=== PATIENT | female | born 1950 | race American Indian/Alaskan Native ===

== ENCOUNTER 2017-04-26 15:09 | Emergency (ER) | payer OTHER, MEDICARE, MEDICAID ==
[2017-04-26 16:50] VITALS: BP 135/63
== END 2017-04-26 17:42 | disposition left against medical advice (07) ==
LOC: DL.ED 15:09
DX: Z53.21 Procedure and treatment not carried out due to patient leaving prior to being seen by health care provider (principal)

== ENCOUNTER 2017-05-10 01:58 | Emergency (ER) | payer MEDICARE, OTHER ==
[2017-05-10] MEDS ORDERED: Naloxone 2 MG/2 ML Syringe IVPUSH ONE (02:03)
[2017-05-10] MEDS ORDERED: 50% Dextrose in Water 50 ML Syringe IVPUSH ONE ×3 (02:05→03:58)
[2017-05-10] MEDS ORDERED: 50% Dextrose in Water 50 ML Syringe ONE (02:06)
[2017-05-10] MEDS ORDERED: Sodium Chloride 0.9% 1,000 ML IV SCH (02:15)
[2017-05-10 02:37] LABS: CHLORIDE,CL 104 mmol/L (101-111); SODIUM,NA 136 mmol/L (135-145)
--- NOTE | 2017-05-10 03:01 | EDM.PDOC ---
ED HPI GENERAL MEDICAL PROBLEM - General Chief Complaint: Neuro Symptoms/Deficits Stated Complaint: ER VISIT Time Seen by Provider: 05/10/17 02:10 Source of Information: Reports: Family History Limitations: Reports: Altered Mental Status - History of Present Illness INITIAL COMMENTS - FREE TEXT/NARRATIVE: ED via family car. Family reports "something wrong" Patient total lift removal from front passenger seat. Eye open, darting. Unresponsive. Skin clammy. Transfer to cot. No obvious signs of injury. Spontaneous snoring respirations, Sats 98%. HR90"s regular. Pupils equal 3mm. Lung ho clear. IV initiated, labs drawn , bedside glucose less than 20. D50 administered. Increased arousal, Patient able to relay hx initially memory of 9pm and leaving friends house at 9pm, then able to relate detailed hx of feeling shakey while in [facility] notes then going to [place] to meet with daughter and daughter noted not acting nrmal and tried giving her pop with glucose tablets but tasted bitter not sweet. clarified, they were at [place] prior to [facility]. Stated they left [facility] and wer going home but turned around and came to hospital. Noting thought they left [facility] after 1am. Originally reported blood sugar low this devyn 120 so did not take insulin. Then later reported to RN that blood sugar 218 and did take insulin before bed. - Related Data Allergies Allergy/AdvReac Type Severity Reaction Status Date / Time butorphanol tartrate Allergy Rash Verified 05/10/17 02:31 [From Stadol] ibuprofen Allergy Itching Verified 05/10/17 02:31 ketorolac Allergy Itching Verified 05/10/17 02:31 Home Meds: Home Meds Insulin Aspart [NovoLOG] 24 units SUBCUT TIDAC 05/03/14 [History] Insulin Glarg,Human.Rec.Analog [Lantus] 55 units SUBCUT BEDTIME 05/03/14 [ History] Lisinopril 20 mg PO DAILY 05/03/14 [History] buPROPion [Wellbutrin] 150 mg PO TID 05/10/14 [History] hydrOXYzine HCl [Atarax] 50 mg PO TID PRN 06/24/16 [History] Insulin Glarg,Human.Rec.Analog [Lantus] 30 units SQ QAM 10/31/16 [History] Pregabalin [Lyrica] 200 mg PO BID 10/31/16 [History] QUEtiapine [SEROquel] 50 mg PO 0800,1400 10/31/16 [History] QUEtiapine [SEROquel] 100 mg PO BEDTIME 10/31/16 [History] Past Medical History HEENT History: Reports: Impaired Vision Other HEENT History: left eye cataract Cardiovascular History: Reports: Hypertension Respiratory History: Reports: Pneumonia, Recurrent Gastrointestinal History: Reports: GERD Genitourinary History: Reports: Urinary Incontinence 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: Musculoskeletal History: Reports: Fracture Neurological History: Reports: TIA Psychiatric History: Reports: Anxiety, Panic Attack Endocrine/Metabolic History: Reports: Diabetes, Type II Hematologic History: Reports: Blood Transfusion(s) Oncologic (Cancer) History: Reports: Ovarian Dermatologic History: Reports: None - Infectious Disease History Infectious Disease History: Reports: Shingles - Past Surgical History HEENT Surgical History: Reports: Tonsillectomy GI Surgical History: Reports: Appendectomy, Cholecystectomy, EGD Neurological Surgical History: Reports: C-Spine, Spinal Fusion Musculoskeletal Surgical History: Reports: Carpal Tunnel, Shoulder Surgery, Other (See Below) Social & Family History - Family History Family Medical History: Noncontributory - Tobacco Use Smoking Status *Q: Current Status Unknown Years of Tobacco use: 4 Packs/Tins Daily: 0.3 Used Tobacco, but Quit: Yes Month Tobacco Last Used: 1989 Second Hand Smoke Exposure: Yes - Caffeine Use Caffeine Use: Reports: Coffee, Soda, Tea - Alcohol Use Days Per Week of Alcohol Use: 0 - Recreational Drug Use Recreational Drug Use: Yes Drug Use in Last 12 Months: No Recreational Drug Type: Reports: Dilaudid, Fentanyl, Oxycodone, Other (see below ) - Living Situation & Occupation Living situation: Reports: with Family ED ROS GENERAL - Review of Systems Review Of Systems: Unable To Obtain ED EXAM, NEURO - Physical Exam Exam: See Below Exam Limited By: No Limitations General Appearance: Lethargic, Moderate Distress Eye Exam: Bilateral Eye: Abnormal EOM (nystagmus), PERRL Ears: Normal External Exam, Normal TMs Nose: Normal Inspection Throat/Mouth: Normal Inspection, Normal Lips, Normal Teeth Head Exam: Atraumatic, Normocephalic Neck: Normal Inspection, Full Range of Motion Respiratory/Chest: No Respiratory Distress, Lungs Clear, Normal Breath Sounds Cardiovascular: Normal Peripheral Pulses, Regular Rate, Rhythm GI/Abdominal: Normal Bowel Sounds, Soft Neurological: Withdraws to Pain, Tremor, Difficulty Walking Skin Exam: Warm, Intact, Normal Color, Diaphoretic Course - Vital Signs Last Recorded V/S: Last Vital Signs Temp 96.7 F 05/10/17 03:07 Pulse 77 05/10/17 03:07 Resp 16 05/10/17 03:07 BP 143/83 H 05/10/17 03:07 Pulse Ox 99 05/10/17 03:07 - Orders/Labs/Meds Orders: Active Orders 24 hr Category Date Time Status EKG 12 Lead [EKG Documentation Completion] [] URGENT Care 05/10/17 02:01 Active Glucose [Blood Glucose Check, Bedside] [] ONETIME Care 05/10/17 02:04 Active Glucose [Blood Glucose Check, Bedside] [] ONETIME Care 05/10/17 02:28 Active Glucose [Blood Glucose Check, Bedside] [] ONETIME Care 05/10/17 03:06 Active Glucose [Blood Glucose Check, Bedside] [] ONETIME Care 05/10/17 03:45 Active CXR [Chest 1V Frontal] [CR] Urgent Exams 05/10/17 02:02 Ordered Head wo Cont [CT] Urgent Exams 05/10/17 02:01 Ordered Sodium Chloride 0.9% [Normal Saline] 1,000 ml Med 05/10/17 02:15 Active IV ASDIRECTED Medication Orders Sodium Chloride (Normal Saline) 1,000 mls @ 200 mls/hr IV ASDIRECTED RAGHAVENDRA Last Admin: 05/10/17 02:11 Dose: 200 mls/hr Labs: Laboratory Tests 05/10/17 05/10/17 05/10/17 Range/Units 01:58 01:58 02:04 WBC 14.7 H (5.0-10.0) 10^3/uL RBC 4.46 (4.2-5.4) 10^6/uL Hgb 12.3 (12.0-16.0) g/dL Hct 38.1 (37.0-47.0) % MCV 85.4 (80-100) fL MCH 27.6 (27.0-34.0) pg MCHC 32.3 L (33.0-35.0) g/dL Plt Count 430 (150-450) 10^3/uL Neut % (Auto) 49.6 (42.2-75.2) % Lymph % (Auto) 37.1 (20.5-50.1) % [place] % (Auto) 8.6 H (2-8) % Eos % (Auto) 4.4 H (1.0-3.0) % Baso % (Auto) 0.3 (0.0-1.0) % Add Manual Diff Yes Neutrophils % (Manual) 47 (42-75) % Lymphocytes % (Manual) 44 (20-50) % Monocytes % (Manual) 4 (2-8) % Eosinophils % (Manual) 5 H (1-3) % Sodium 136 (135-145) mmol/L Potassium 3.5 L (3.6-5.0) mmol/L Chloride 104 (101-111) mmol/L Carbon Dioxide 22.0 (21.0-31.0) mmol/L Anion Gap 13.5 BUN 22 H (7-18) mg/dL Creatinine 1.2 (0.6-1.3) mg/dL Est Cr Clr Drug Dosing TNP Estimated GFR (MDRD) 45 BUN/Creatinine Ratio 18.33 Glucose 27 L* (74-105) mg/dL POC Glucose (70-105) mg/dl Calcium 9.4 (8.4-10.2) mg/dl Total Bilirubin 0.2 (0.2-1.0) mg/dL AST 27 (10-42) IU/L ALT 40 (10-60) IU/L Alkaline Phosphatase 160 H (42-121) IU/L Troponin I < 0.02 (0.00-0.02) ng/ml Total Protein 8.5 H (6.7-8.2) g/dl Albumin 4.2 (3.2-5.5) g/dl Globulin 4.3 Albumin/Globulin Ratio 0.98 Amylase 39 (28-100) U/L Lipase 25 (22-51) U/L Urine Color (YELLOW) Urine Appearance (CLEAR) Urine pH (5.0-9.0) Ur Specific [place] (1.005-1.030) Urine Protein (NEGATIVE) Urine Glucose (UA) (NEGATIVE) Urine Ketones (NEGATIVE) Urine Occult Blood (NEGATIVE) Urine Nitrite (NEGATIVE) Urine Bilirubin (NEGATIVE) Urine Urobilinogen (0.2-1.0) mg/dL Ur Leukocyte Esterase (NEGATIVE) Urine RBC /HPF Urine WBC (0-5/HPF) /HPF Ur Epithelial Cells /HPF Urine Bacteria (0-FEW/HPF) /HPF Hyaline Casts /LPF Urine Opiates Screen Positive H (NEGATIVE) Ur Oxycodone Screen Negative (NEGATIVE) Urine Methadone Screen Negative (NEGATIVE) Ur Barbiturates Screen Negative (NEGATIVE) U Tricyclic Antidepress Negative (NEGATIVE) Ur Phencyclidine Scrn Negative (NEGATIVE) Ur Amphetamine Screen Negative (NEGATIVE) U Methamphetamines Scrn Negative (NEGATIVE) Urine MDMA Screen Negative (NEGATIVE) U Benzodiazepines Scrn Negative (NEGATIVE) Urine Cocaine Screen Negative (NEGATIVE) U Marijuana (THC) Screen Negative (NEGATIVE) Ethyl Alcohol < 5 mg/dL 05/10/17 05/10/17 05/10/17 Range/Units 02:04 02:04 02:34 WBC (5.0-10.0) 10^3/uL RBC (4.2-5.4) 10^6/uL Hgb (12.0-16.0) g/dL Hct (37.0-47.0) % MCV (80-100) fL MCH (27.0-34.0) pg MCHC (33.0-35.0) g/dL Plt Count (150-450) 10^3/uL Neut % (Auto) (42.2-75.2) % Lymph % (Auto) (20.5-50.1) % [place] % (Auto) (2-8) % Eos % (Auto) (1.0-3.0) % Baso % (Auto) (0.0-1.0) % Add Manual Diff Neutrophils % (Manual) (42-75) % Lymphocytes % (Manual) (20-50) % Monocytes % (Manual) (2-8) % Eosinophils % (Manual) (1-3) % Sodium (135-145) mmol/L Potassium (3.6-5.0) mmol/L Chloride (101-111) mmol/L Carbon Dioxide (21.0-31.0) mmol/L Anion Gap BUN (7-18) mg/dL Creatinine (0.6-1.3) mg/dL Est Cr Clr Drug Dosing Estimated GFR (MDRD) BUN/Creatinine Ratio Glucose (74-105) mg/dL POC Glucose < 20 L* 121 H (70-105) mg/dl Calcium (8.4-10.2) mg/dl Total Bilirubin (0.2-1.0) mg/dL AST (10-42) IU/L ALT (10-60) IU/L Alkaline Phosphatase (42-121) IU/L Troponin I (0.00-0.02) ng/ml Total Protein (6.7-8.2) g/dl Albumin (3.2-5.5) g/dl Globulin Albumin/Globulin Ratio Amylase (28-100) U/L Lipase (22-51) U/L Urine Color Yellow (YELLOW) Urine Appearance Clear (CLEAR) Urine pH 5.5 (5.0-9.0) Ur Specific [place] 1.010 (1.005-1.030) Urine Protein Trace H (NEGATIVE) Urine Glucose (UA) Negative (NEGATIVE) Urine Ketones Negative (NEGATIVE) Urine Occult Blood Negative (NEGATIVE) Urine Nitrite Negative (NEGATIVE) Urine Bilirubin Negative (NEGATIVE) Urine Urobilinogen 0.2 (0.2-1.0) mg/dL Ur Leukocyte Esterase Negative (NEGATIVE) Urine RBC 0-5 /HPF Urine WBC 0-5 (0-5/HPF) /HPF Ur Epithelial Cells Occasional /HPF Urine Bacteria Few (0-FEW/HPF) /HPF Hyaline Casts Few H /LPF Urine Opiates Screen (NEGATIVE) Ur Oxycodone Screen (NEGATIVE) Urine Methadone Screen (NEGATIVE) Ur Barbiturates Screen (NEGATIVE) U Tricyclic Antidepress (NEGATIVE) Ur Phencyclidine Scrn (NEGATIVE) Ur Amphetamine Screen (NEGATIVE) U Methamphetamines Scrn (NEGATIVE) Urine MDMA Screen (NEGATIVE) U Benzodiazepines Scrn (NEGATIVE) Urine Cocaine Screen (NEGATIVE) U Marijuana (THC) Screen (NEGATIVE) Ethyl Alcohol mg/dL 05/10/17 05/10/17 Range/Units 03:08 03:52 WBC (5.0-10.0) 10^3/uL RBC (4.2-5.4) 10^6/uL Hgb (12.0-16.0) g/dL Hct (37.0-47.0) % MCV (80-100) fL MCH (27.0-34.0) pg MCHC (33.0-35.0) g/dL Plt Count (150-450) 10^3/uL Neut % (Auto) (42.2-75.2) % Lymph % (Auto) (20.5-50.1) % [place] % (Auto) (2-8) % Eos % (Auto) (1.0-3.0) % Baso % (Auto) (0.0-1.0) % Add Manual Diff Neutrophils % (Manual) (42-75) % Lymphocytes % (Manual) (20-50) % Monocytes % (Manual) (2-8) % Eosinophils % (Manual) (1-3) % Sodium (135-145) mmol/L Potassium (3.6-5.0) mmol/L Chloride (101-111) mmol/L Carbon Dioxide (21.0-31.0) mmol/L Anion Gap BUN (7-18) mg/dL Creatinine (0.6-1.3) mg/dL Est Cr Clr Drug Dosing Estimated GFR (MDRD) BUN/Creatinine Ratio Glucose (74-105) mg/dL POC Glucose 60 L 85 (70-105) mg/dl Calcium (8.4-10.2) mg/dl Total Bilirubin (0.2-1.0) mg/dL AST (10-42) IU/L ALT (10-60) IU/L Alkaline Phosphatase (42-121) IU/L Troponin I (0.00-0.02) ng/ml Total Protein (6.7-8.2) g/dl Albumin (3.2-5.5) g/dl Globulin Albumin/Globulin Ratio Amylase (28-100) U/L Lipase (22-51) U/L Urine Color (YELLOW) Urine Appearance (CLEAR) Urine pH (5.0-9.0) Ur Specific [place] (1.005-1.030) Urine Protein (NEGATIVE) Urine Glucose (UA) (NEGATIVE) Urine Ketones (NEGATIVE) Urine Occult Blood (NEGATIVE) Urine Nitrite (NEGATIVE) Urine Bilirubin (NEGATIVE) Urine Urobilinogen (0.2-1.0) mg/dL Ur Leukocyte Esterase (NEGATIVE) Urine RBC /HPF Urine WBC (0-5/HPF) /HPF Ur Epithelial Cells /HPF Urine Bacteria (0-FEW/HPF) /HPF Hyaline Casts /LPF Urine Opiates Screen (NEGATIVE) Ur Oxycodone Screen (NEGATIVE) Urine Methadone Screen (NEGATIVE) Ur Barbiturates Screen (NEGATIVE) U Tricyclic Antidepress (NEGATIVE) Ur Phencyclidine Scrn (NEGATIVE) Ur Amphetamine Screen (NEGATIVE) U Methamphetamines Scrn (NEGATIVE) Urine MDMA Screen (NEGATIVE) U Benzodiazepines Scrn (NEGATIVE) Urine Cocaine Screen (NEGATIVE) U Marijuana (THC) Screen (NEGATIVE) Ethyl Alcohol mg/dL Meds: Medications Generic Name Dose Route Start Last Admin Trade Name Freq PRN Reason Stop Dose Admin Sodium Chloride 1,000 mls @ 200 mls/hr 05/10/17 02:15 05/10/17 02:11 Normal Saline IV 200 mls/hr ASDIRECTED RAGHAVENDRA Administration Discontinued Medications Generic Name Dose Route Start Last Admin Trade Name Freq PRN Reason Stop Dose Admin Dextrose/Water 50 ml 05/10/17 02:05 05/10/17 02:09 Dextrose 50% In Water IVPUSH 05/10/17 02:06 50 ml ONETIME ONE Administration Dextrose/Water Confirm 05/10/17 02:06 05/10/17 02:09 Dextrose 50% In Water Administered 05/10/17 02:07 Not Given Dose 50 ml .ROUTE .STK-MED ONE Dextrose/Water 25 ml 05/10/17 03:09 05/10/17 03:13 Dextrose 50% In Water IVPUSH 05/10/17 03:10 25 ml ONETIME ONE Administration Dextrose/Water 25 ml 05/10/17 03:58 05/10/17 04:00 Dextrose 50% In Water IVPUSH 05/10/17 03:59 25 ml ONETIME ONE Administration Lidocaine 700 mg 05/10/17 03:19 05/10/17 03:30 Lidoderm 5% TOP 05/10/17 03:20 700 mg ONETIME ONE Administration Naloxone HCl 0.4 mg 05/10/17 02:03 05/10/17 02:40 Narcan IVPUSH 05/10/17 02:04 Not Given ONETIME ONE - Radiology Interpretation Free Text/Narrative:: Head Ct negative. CXR negative. - Re-Assessments/Exams Free Text/Narrative Re-Assessment/Exam: 05/10/17 03:04 Remains alert following Glucose. Talking with spouse. Follow up glucose 121. Eating toast. Denies complaints. Blood sugars improved but not maintained, Continued to decline even after IV and oral intake. Dr. Marshall agree to accept for observation . Patient refused. AMA form signed. Departure - Departure Time of Disposition: 05:55 Disposition: Against Medical Advice 07 Condition: Undetermined Clinical Impression: History of prescription drug abuse, Hypoglycemia Diabetes mellitus, insulin dependent (IDDM), uncontrolled Qualifiers: Diabetes mellitus complication status: with hypoglycemia Diabetes mellitus complication detail: without coma Qualified Code(s): E10.649 - Type 1 diabetes mellitus with hypoglycemia without coma Altered mental status Qualifiers: Altered mental status type: transient alteration of awareness Qualified Code(s) : R40.4 - Transient alteration of awareness - Discharge Information - My Orders Last 24 Hours: My Active Orders 05/10/17 02:01 EKG 12 Lead [EKG Documentation Completion] [RC] URGENT Head wo Cont [CT] Urgent 05/10/17 02:02 CXR [Chest 1V Frontal] [CR] Urgent 05/10/17 02:04 Glucose [Blood Glucose Check, Bedside] [RC] ONETIME 05/10/17 02:15 Sodium Chloride 0.9% [Normal Saline] 1,000 ml IV ASDIRECTED 05/10/17 02:28 Glucose [Blood Glucose Check, Bedside] [RC] ONETIME 05/10/17 03:06 Glucose [Blood Glucose Check, Bedside] [RC] ONETIME 05/10/17 03:45 Glucose [Blood Glucose Check, Bedside] [RC] ONETIME - Assessment/Plan Last 24 Hours: My Active Orders 05/10/17 02:01 EKG 12 Lead [EKG Documentation Completion] [RC] URGENT Head wo Cont [CT] Urgent 05/10/17 02:02 CXR [Chest 1V Frontal] [CR] Urgent 05/10/17 02:04 Glucose [Blood Glucose Check, Bedside] [RC] ONETIME 05/10/17 02:15 Sodium Chloride 0.9% [Normal Saline] 1,000 ml IV ASDIRECTED 05/10/17 02:28 Glucose [Blood Glucose Check, Bedside] [RC] ONETIME 05/10/17 03:06 Glucose [Blood Glucose Check, Bedside] [RC] ONETIME 05/10/17 03:45 Glucose [Blood Glucose Check, Bedside] [RC] ONETIME
[2017-05-10 03:08] VITALS: BP 143/83
[2017-05-10] MEDS ORDERED: Lidocaine 5% 700 MG Patch TOP ONE (03:19)
--- NOTE | 2017-05-12 08:46 | EKG ---
05/10/2017- TRISHA ESPITIA - EKG per my reading shows sinus rhythm at the rate of 100. No acute ST changes. MODL /[id number]
== END 2017-05-10 04:49 | disposition left against medical advice (07) ==
LOC: DL.ED 01:58 → DL.MS 04:16 → UNDOADMOB 04:16
DX: E11.649 Type 2 diabetes mellitus with hypoglycemia without coma (principal); R40.4 Transient alteration of awareness; I10 Essential (primary) hypertension; K21.9 Gastro-esophageal reflux disease without esophagitis; F41.0 Panic disorder [episodic paroxysmal anxiety]; F17.210 Nicotine dependence, cigarettes, uncomplicated; Z86.73 Personal history of transient ischemic attack (TIA), and cerebral infarction without residual deficits; Z87.01 Personal history of pneumonia (recurrent); Z98.890 Other specified postprocedural states; Z85.43 Personal history of malignant neoplasm of ovary; Z90.49 Acquired absence of other specified parts of digestive tract; Z98.1 Arthrodesis status; Z79.4 Long term (current) use of insulin; Z79.899 Other long term (current) drug therapy; Z88.6 Allergy status to analgesic agent; Z88.8 Allergy status to other drugs, medicaments and biological substances
CPT/HCPCS: 36415; 51702; 70450; 71010; 80053; 80305; 81001; 82150; 82962; 83690; 84484; 85025; 93005; 93010; 96361; 96374; 96376; 99285; A9270; G0480; J7030; J7060

== ENCOUNTER 2017-06-15 19:35 | Emergency (ER) | payer MEDICARE, OTHER ==
[2017-06-15 21:13] VITALS: BP 130/64
[2017-06-15] MEDS ORDERED: Acetaminophen 500 MG Tab PO ONE ×2 (21:25→21:52)
--- NOTE | 2017-06-15 21:25 | EDM.PDOC ---
ED HPI GENERAL MEDICAL PROBLEM - General Chief Complaint: Lower Extremity Injury/Pain Stated Complaint: RT LEG PAIN, COLD [phone] Time Seen by Provider: 06/15/17 21:16 Source of Information: Reports: Patient History Limitations: Reports: No Limitations - History of Present Illness INITIAL COMMENTS - FREE TEXT/NARRATIVE: 67 yo [place] female c/o right knee pain w/ PMHx. Right Knee DJD. Pt. seen at [facility] one week ago for same and had x-ray which patient stated she was advised that she has arthritis and may need surgery. Onset: Unknown/Unsure Duration: Chronic Location: Reports: Lower Extremity, Right Quality: Reports: Ache Severity: Moderate Improves with: Reports: Rest Worsens with: Reports: Movement Context: Reports: Other (arthritis) Associated Symptoms: Reports: No Other Symptoms Treatments STAFF COUNSEL: Reports: Acetaminophen Right Leg Pain Score (Numeric/FACES): 10 - Related Data Allergies Allergy/AdvReac Type Severity Reaction Status Date / Time butorphanol tartrate Allergy Rash Verified 06/15/17 21:13 [From Stadol] ibuprofen Allergy Itching Verified 06/15/17 21:13 ketorolac Allergy Itching Verified 06/15/17 21:13 Home Meds: Home Meds RX: Insulin Aspart [NovoLOG] 24 units SUBCUT TIDAC 05/03/14 [History] RX: Insulin Glarg,Human.Rec.Analog [Lantus] 55 units SUBCUT BEDTIME 05/03/14 [ History] RX: Lisinopril 20 mg PO DAILY 05/03/14 [History] RX: buPROPion [Wellbutrin] 150 mg PO BID 05/10/14 [History] RX: hydrOXYzine HCl [Atarax] 50 mg PO TID PRN 06/24/16 [History] Pregabalin [Lyrica] 200 mg PO BID 10/31/16 [History] QUEtiapine [SEROquel] 100 mg PO BEDTIME 10/31/16 [History] RX: QUEtiapine [SEROquel] 50 mg PO DAILY 10/31/16 [History] Past Medical History HEENT History: Reports: Impaired Vision Other HEENT History: left eye cataract Cardiovascular History: Reports: Hypertension Respiratory History: Reports: Pneumonia, Recurrent Gastrointestinal History: Reports: GERD Genitourinary History: Reports: Urinary Incontinence [employer]GR[employer]HER History: Reports: Musculoskeletal History: Reports: Fracture Neurological History: Reports: TIA Psychiatric History: Reports: Anxiety, Panic Attack Endocrine/Metabolic History: Reports: Diabetes, Type II Hematologic History: Reports: Blood Transfusion(s) Oncologic (Cancer) History: Reports: Ovarian Dermatologic History: Reports: None - Infectious Disease History Infectious Disease History: Reports: Shingles - Past Surgical History HEENT Surgical History: Reports: Tonsillectomy GI Surgical History: Reports: Appendectomy, Cholecystectomy, EGD Neurological Surgical History: Reports: C-Spine, Spinal Fusion Musculoskeletal Surgical History: Reports: Carpal Tunnel, Shoulder Surgery, Other (See Below) Social & Family History - Family History Family Medical History: Noncontributory - Tobacco Use Smoking Status *Q: Current Status Unknown Years of Tobacco use: 4 Packs/Tins Daily: 0.3 Used Tobacco, but Quit: Yes Month Tobacco Last Used: 1989 Second Hand Smoke Exposure: Yes - Caffeine Use Caffeine Use: Reports: Coffee, Soda, Tea - Alcohol Use Days Per Week of Alcohol Use: 0 - Recreational Drug Use Recreational Drug Use: Yes Drug Use in Last 12 Months: No Recreational Drug Type: Reports: Dilaudid, Fentanyl, Oxycodone, Other (see below ) - Living Situation & Occupation Living situation: Reports: with Family Review of Systems - Review of Systems Review Of Systems: See Below Constitutional: Reports: No Symptoms Eyes: Reports: No Symptoms Ears: Reports: No Symptoms Nose: Reports: No Symptoms Mouth/Throat: Reports: No Symptoms Respiratory: Reports: No Symptoms Cardiovascular: Reports: No Symptoms GI/Abdominal: Reports: No Symptoms Genitourinary: Reports: No Symptoms Musculoskeletal: Reports: Joint Pain (right knee) Skin: Reports: No Symptoms Neurological: Reports: No Symptoms Psychiatric: Reports: No Symptoms ED EXAM, GENERAL - Physical Exam Exam: See Below Exam Limited By: No Limitations General Appearance: Alert, No Apparent Distress Eye Exam: Bilateral Eye: EOMI, PERRL Ears: Normal External Exam Nose: Normal Inspection Throat/Mouth: Normal Inspection Head: Atraumatic Neck: Normal Inspection Respiratory/Chest: No Respiratory Distress, Lungs Clear Cardiovascular: Normal Peripheral Pulses, Regular Rate, Rhythm, No JVD Peripheral Pulses: 2+: Femoral (L), Femoral (R), Popliteal (L), Popliteal (R) GI/Abdominal: Normal Bowel Sounds Back Exam: Normal Inspection, Full Range of Motion Extremities: Normal Inspection, Normal Range of Motion Neurological: Alert, Oriented, CN II-XII Intact Psychiatric: Normal Affect Skin Exam: Warm, Dry, Intact Lymphatic: No Adenopathy Course - Vital Signs Last Recorded V/S: Last Vital Signs Temp 36.9 C 06/15/17 21:00 Pulse 91 06/15/17 21:00 Resp 18 06/15/17 21:00 BP 130/64 06/15/17 21:00 Pulse Ox 99 06/15/17 21:00 - Orders/Labs/Meds Meds: Medications Discontinued Medications Generic Name Dose Route Start Last Admin Trade Name Freq PRN Reason Stop Dose Admin Acetaminophen 500 mg 06/15/17 21:25 06/15/17 21:35 Tylenol Extra Strength PO 06/15/17 21:26 Not Given ONETIME ONE Departure - Departure Time of Disposition: 21:46 Disposition: Home, Self-Care 01 Condition: Good Clinical Impression: Degenerative joint disease of knee, right Qualifiers: Osteoarthritis type: primary Qualified Code(s): M17.11 - Unilateral primary osteoarthritis, right knee - Discharge Information Forms: ED Department Discharge Additional Instructions: Rest Moist Heat to right knee TID X 15 mins. For pain take Tylenol ES 500mg QID ( otc) F/U w/ your PCP for referral to Orthopedics
== END 2017-06-15 21:55 | disposition home or self-care (01) ==
LOC: DL.ED 19:35
DX: M17.11 Unilateral primary osteoarthritis, right knee (principal); I10 Essential (primary) hypertension; E11.9 Type 2 diabetes mellitus without complications; Z88.8 Allergy status to other drugs, medicaments and biological substances; Z88.6 Allergy status to analgesic agent; Z79.4 Long term (current) use of insulin; Z87.891 Personal history of nicotine dependence
CPT/HCPCS: 99283; A9270

== ENCOUNTER 2017-06-20 14:14 | Emergency (ER) | payer MEDICAID, MEDICARE, OTHER ==
--- NOTE | 2017-06-20 14:40 | EDM.PDOC ---
ED HPI GENERAL MEDICAL PROBLEM - General Chief Complaint: General Stated Complaint: RT LEG PAIN Time Seen by Provider: 06/20/17 14:38 Source of Information: Reports: Patient History Limitations: Reports: No Limitations - History of Present Illness INITIAL COMMENTS - FREE TEXT/NARRATIVE: 67 yo [place] Female c/o arthritis to right knee. Pt. states her LYRICA has not yet arrived via mail and wants a prescription. Pt. states she sees the [facility] [place] Onset: Unknown/Unsure Duration: Chronic Location: Reports: Lower Extremity, Right (knee) Quality: Reports: Ache Severity: Moderate Improves with: Reports: Medication (Lyrica), Rest Worsens with: Reports: Movement Context: Reports: Other (knee arthritis) Associated Symptoms: Reports: No Other Symptoms - Related Data Allergies Allergy/AdvReac Type Severity Reaction Status Date / Time butorphanol tartrate Allergy Rash Verified 06/20/17 14:39 [From Stadol] ibuprofen Allergy Itching Verified 06/20/17 14:39 ketorolac Allergy Itching Verified 06/20/17 14:39 Home Meds: Home Meds Insulin Aspart [NovoLOG] 24 units SUBCUT TIDAC 05/03/14 [History] Insulin Glarg,Human.Rec.Analog [Lantus] 55 units SUBCUT BEDTIME 05/03/14 [ History] Lisinopril 20 mg PO DAILY 05/03/14 [History] buPROPion [Wellbutrin] 150 mg PO BID 05/10/14 [History] hydrOXYzine HCl [Atarax] 50 mg PO TID PRN 06/24/16 [History] Pregabalin [Lyrica] 200 mg PO BID 10/31/16 [History] QUEtiapine [SEROquel] 50 mg PO DAILY 10/31/16 [History] QUEtiapine [SEROquel] 100 mg PO BEDTIME 10/31/16 [History] Past Medical History HEENT History: Reports: Impaired Vision Other HEENT History: left eye cataract Cardiovascular History: Reports: Hypertension Respiratory History: Reports: Pneumonia, Recurrent Gastrointestinal History: Reports: GERD Genitourinary History: Reports: Urinary Incontinence 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 Neurological History: Reports: TIA Psychiatric History: Reports: Anxiety, Panic Attack Endocrine/Metabolic History: Reports: Diabetes, Type II Hematologic History: Reports: Blood Transfusion(s) Oncologic (Cancer) History: Reports: Ovarian Dermatologic History: Reports: None - Infectious Disease History Infectious Disease History: Reports: Shingles - Past Surgical History HEENT Surgical History: Reports: Tonsillectomy GI Surgical History: Reports: Appendectomy, Cholecystectomy, EGD Neurological Surgical History: Reports: C-Spine, Spinal Fusion Musculoskeletal Surgical History: Reports: Carpal Tunnel, Shoulder Surgery, Other (See Below) Social & Family History - Family History Family Medical History: Noncontributory - Tobacco Use Smoking Status *Q: Current Every Day Smoker Years of Tobacco use: 30 Packs/Tins Daily: 0.5 Used Tobacco, but Quit: Yes Month Tobacco Last Used: 1989 Second Hand Smoke Exposure: Yes - Caffeine Use Caffeine Use: Reports: None - Alcohol Use Days Per Week of Alcohol Use: 0 - Recreational Drug Use Recreational Drug Use: No Drug Use in Last 12 Months: No Recreational Drug Type: Reports: Dilaudid, Fentanyl, Oxycodone, Other (see below ) - Living Situation & Occupation Living situation: Reports: with Family Review of Systems - Review of Systems Review Of Systems: See Below Constitutional: Reports: No Symptoms Eyes: Reports: No Symptoms Ears: Reports: No Symptoms Nose: Reports: No Symptoms Mouth/Throat: Reports: No Symptoms Respiratory: Reports: No Symptoms Cardiovascular: Reports: No Symptoms GI/Abdominal: Reports: No Symptoms Genitourinary: Reports: No Symptoms Musculoskeletal: Reports: Joint Pain (knee right) Skin: Reports: No Symptoms Neurological: Reports: No Symptoms Psychiatric: Reports: No Symptoms ED EXAM, GENERAL - Physical Exam Exam: See Below Exam Limited By: No Limitations General Appearance: Alert, WD/WN Ears: Normal External Exam Nose: Normal Inspection Throat/Mouth: Normal Inspection Head: Atraumatic Neck: Normal Inspection Respiratory/Chest: No Respiratory Distress, Lungs Clear Cardiovascular: Normal Peripheral Pulses Peripheral Pulses: 2+: Dorsalis Pedis (L), Dorsalis Pedis (R) GI/Abdominal: Normal Bowel Sounds Extremities: Normal Inspection, Normal Range of Motion, No Pedal Edema, Other ( min right knee tenderness. Pt. ambulates w/o problems) Neurological: Alert, Oriented, CN II-XII Intact Psychiatric: Normal Affect, Normal Mood Skin Exam: Warm, Dry, Intact, Normal Color Lymphatic: No Adenopathy Course - Orders/Labs/Meds Meds: Medications Discontinued Medications Generic Name Dose Route Start Last Admin Trade Name Annamaria PRN Reason Stop Dose Admin Acetaminophen 500 mg 06/20/17 14:49 Tylenol Extra Strength PO 06/20/17 14:50 ONETIME ONE Departure - Departure Time of Disposition: 14:53 Disposition: Home, Self-Care 01 Condition: Good Clinical Impression: Right knee DJD Qualifiers: Osteoarthritis type: primary Qualified Code(s): M17.11 - Unilateral primary osteoarthritis, right knee - Discharge Information Forms: ED Department Discharge Additional Instructions: Rest Apply moist heat TID X 15 mins. For Pain: Tylenol ES 500mg QID as needed. Take your LYRICA as prescribed only F/U w/ PCP
[2017-06-20] MEDS ORDERED: Acetaminophen 500 MG Tab PO ONE (14:49)
[2017-06-20 14:52] VITALS: BP 104/81
== END 2017-06-20 14:57 | disposition home or self-care (01) ==
LOC: DL.ED 14:14
DX: M17.11 Unilateral primary osteoarthritis, right knee (principal); I10 Essential (primary) hypertension; E11.9 Type 2 diabetes mellitus without complications; F17.210 Nicotine dependence, cigarettes, uncomplicated; Z88.6 Allergy status to analgesic agent; Z88.8 Allergy status to other drugs, medicaments and biological substances; Z79.4 Long term (current) use of insulin; Z79.899 Other long term (current) drug therapy
CPT/HCPCS: 99283; A9270

== ENCOUNTER 2017-08-03 16:23 | Emergency (ER) | payer MEDICARE, OTHER ==
[2017-08-03] MEDS ORDERED: Benzonatate 100 MG Cap PO ONE (16:56)
[2017-08-03] MEDS ORDERED: Albuterol/Ipratropium 3.0-0.5 MG/3 ML Neb Soln NEB ONE (16:56)
[2017-08-03] MEDS ORDERED: Sodium Chloride 0.9% 10 ML Syringe FLUSH PRN (16:57)
[2017-08-03 17:46] LABS: CHLORIDE,CL 98 mmol/L (101-111); SODIUM,NA 132 mmol/L (135-145)
[2017-08-03] MEDS ORDERED: Azithromycin 250 MG Tab PO ONE (18:00)
[2017-08-03] MEDS ORDERED: cefTRIAXone 1 GM Vial IVPUSH ONE (18:00)
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
[2017-08-03 19:09] VITALS: BP 111/39
== END 2017-08-03 19:09 | disposition home or self-care (01) ==
LOC: DL.ED 16:23
DX: J20.9 Acute bronchitis, unspecified (principal); J02.9 Acute pharyngitis, unspecified; I10 Essential (primary) hypertension; E11.9 Type 2 diabetes mellitus without complications; Z88.6 Allergy status to analgesic agent; Z88.8 Allergy status to other drugs, medicaments and biological substances; Z79.4 Long term (current) use of insulin
CPT/HCPCS: 36415; 71020; 80053; 82009; 83605; 85025; 87040; 87081; 87430; 87804; 94640; 96374; 99284; A9270; J0696; J7050

== ENCOUNTER 2017-09-10 20:50 | Emergency (ER) | payer MEDICARE, OTHER ==
[2017-09-10 21:20] VITALS: BP 159/79
== END 2017-09-10 23:28 | disposition left against medical advice (07) ==
LOC: DL.ED 20:50
DX: Z53.21 Procedure and treatment not carried out due to patient leaving prior to being seen by health care provider (principal)

== ENCOUNTER 2017-10-03 21:22 | Emergency (ER) | payer MEDICARE, MEDICAID ==
[2017-10-03] MEDS ORDERED: buPROPion 150 MG Tab.ER PO ONE (21:55)
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
[2017-10-03 22:11] VITALS: BP 140/63
== END 2017-10-03 22:17 | disposition home or self-care (01) ==
LOC: DL.ED 21:22
DX: Z76.0 Encounter for issue of repeat prescription (principal); I10 Essential (primary) hypertension; E11.9 Type 2 diabetes mellitus without complications; F17.210 Nicotine dependence, cigarettes, uncomplicated; Z88.6 Allergy status to analgesic agent; Z88.8 Allergy status to other drugs, medicaments and biological substances; Z79.899 Other long term (current) drug therapy
CPT/HCPCS: 99283; A9270; 99282

== ENCOUNTER 2017-10-09 19:12 | Emergency (ER) | payer MEDICARE, OTHER, MEDICAID ==
[2017-10-09 19:38] VITALS: BP 132/77
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
== END 2017-10-09 19:58 | disposition home or self-care (01) ==
LOC: DL.ED 19:12
DX: G47.00 Insomnia, unspecified (principal); M54.5 Low back pain; G89.29 Other chronic pain; F17.210 Nicotine dependence, cigarettes, uncomplicated; I10 Essential (primary) hypertension; E11.9 Type 2 diabetes mellitus without complications; F41.0 Panic disorder [episodic paroxysmal anxiety]; Z98.1 Arthrodesis status; Z79.4 Long term (current) use of insulin; Z88.8 Allergy status to other drugs, medicaments and biological substances; Z88.6 Allergy status to analgesic agent
CPT/HCPCS: 99282; 99283

== ENCOUNTER 2018-01-30 00:28 | Emergency (ER) | payer MEDICARE, MEDICAID ==
[2018-01-30 00:42] VITALS: BP 127/68
[2018-01-30] MEDS ORDERED: Promethazine 25 MG/ML SDV IM ONE (00:54)
[2018-01-30] MEDS ORDERED: ClonazePAM 0.5 MG Tab PO ONE (01:11)
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
== END 2018-01-30 01:25 | disposition home or self-care (01) ==
LOC: DL.ED 00:28
DX: M62.830 Muscle spasm of back (principal); M54.16 Radiculopathy, lumbar region; I10 Essential (primary) hypertension; E11.9 Type 2 diabetes mellitus without complications; F17.210 Nicotine dependence, cigarettes, uncomplicated; Z88.6 Allergy status to analgesic agent; Z88.8 Allergy status to other drugs, medicaments and biological substances; Z79.4 Long term (current) use of insulin; Z79.899 Other long term (current) drug therapy
CPT/HCPCS: 96372; 99283; A9270; J2550

== ENCOUNTER 2018-03-25 19:52 | Emergency (ER) | payer MEDICARE, MEDICAID ==
[2018-03-25 22:30] VITALS: BP 127/103
[2018-03-25] MEDS ORDERED: predniSONE 20 MG Tab PO ONE (23:59)
[2018-03-25] MEDS ORDERED: Promethazine 25 MG/ML SDV IM ONE (23:59)
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
== END 2018-03-26 00:16 | disposition home or self-care (01) ==
LOC: DL.ED 19:52
DX: E11.42 Type 2 diabetes mellitus with diabetic polyneuropathy (principal); I10 Essential (primary) hypertension; Z88.8 Allergy status to other drugs, medicaments and biological substances; Z88.6 Allergy status to analgesic agent; Z79.4 Long term (current) use of insulin
CPT/HCPCS: 96372; 99283; A9270; J2550

== ENCOUNTER 2018-04-10 19:17 | Emergency (ER) | payer MEDICARE, MEDICAID ==
[2018-04-10 19:25] VITALS: BP 143/61
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
[2018-04-10] MEDS ORDERED: Morphine 2 MG/ML Syringe IM ONE (20:21)
== END 2018-04-10 20:40 | disposition home or self-care (01) ==
LOC: DL.ED 19:17
DX: M79.2 Neuralgia and neuritis, unspecified (principal); I10 Essential (primary) hypertension; E11.9 Type 2 diabetes mellitus without complications; Z88.6 Allergy status to analgesic agent; Z79.4 Long term (current) use of insulin; Z88.8 Allergy status to other drugs, medicaments and biological substances
CPT/HCPCS: 80305; 81001; 96372; 99283; J2270

== ENCOUNTER 2018-04-12 14:31 | Emergency (ER) | payer MEDICARE, MEDICAID ==
[2018-04-12 14:44] VITALS: BP 109/66
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
[2018-04-12] MEDS ORDERED: Morphine 2 MG/ML Syringe IM ONE (15:03)
== END 2018-04-12 15:28 | disposition home or self-care (01) ==
LOC: DL.ED 14:31
DX: E11.42 Type 2 diabetes mellitus with diabetic polyneuropathy (principal); I10 Essential (primary) hypertension; Z88.6 Allergy status to analgesic agent; Z79.4 Long term (current) use of insulin; Z79.899 Other long term (current) drug therapy
CPT/HCPCS: 99283; J2270

== ENCOUNTER 2018-08-17 23:34 | Emergency (ER) | payer MEDICARE, OTHER ==
[2018-08-18 00:11] VITALS: BP 160/77
[2018-08-18] MEDS ORDERED: methylPREDNISolone Sodium Succinate 125 MG/2 ML SDV IM ONE (01:46)
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
== END 2018-08-18 02:18 | disposition home or self-care (01) ==
LOC: DL.ED 23:34
DX: M54.41 Lumbago with sciatica, right side (principal); M54.16 Radiculopathy, lumbar region; E78.00 Pure hypercholesterolemia, unspecified; I10 Essential (primary) hypertension; E11.9 Type 2 diabetes mellitus without complications; F41.0 Panic disorder [episodic paroxysmal anxiety]; Z88.5 Allergy status to narcotic agent; Z88.8 Allergy status to other drugs, medicaments and biological substances; Z79.4 Long term (current) use of insulin; Z79.899 Other long term (current) drug therapy
CPT/HCPCS: 96372; 99283; J2930

== ENCOUNTER 2018-08-22 12:54 | Emergency (ER) | payer MEDICARE, OTHER ==
[2018-08-22 14:19] VITALS: BP 184/75
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
== END 2018-08-22 17:50 | disposition home or self-care (01) ==
LOC: DL.ED 12:54
DX: M54.5 Low back pain (principal); G89.29 Other chronic pain; E78.00 Pure hypercholesterolemia, unspecified; I10 Essential (primary) hypertension; E11.9 Type 2 diabetes mellitus without complications; F41.9 Anxiety disorder, unspecified; Z88.8 Allergy status to other drugs, medicaments and biological substances; Z88.5 Allergy status to narcotic agent; Z79.4 Long term (current) use of insulin; Z79.899 Other long term (current) drug therapy; Z87.891 Personal history of nicotine dependence
CPT/HCPCS: 99283

== ENCOUNTER 2018-08-31 14:21 | Emergency (ER) | payer MEDICARE, MEDICAID ==
[2018-08-31 14:43] VITALS: BP 157/66
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
[2018-08-31] MEDS ORDERED: Levofloxacin 500 MG Tab PO ONE (17:17)
[2018-08-31 17:28] LABS: ANION GAP 17.7; CHLORIDE,CL 96 mmol/L (101-111); SODIUM,NA 128 mmol/L (135-145)
== END 2018-08-31 17:38 | disposition home or self-care (01) ==
LOC: DL.ED 14:21
DX: J18.9 Pneumonia, unspecified organism (principal); E78.00 Pure hypercholesterolemia, unspecified; I10 Essential (primary) hypertension; K21.9 Gastro-esophageal reflux disease without esophagitis; E11.40 Type 2 diabetes mellitus with diabetic neuropathy, unspecified; Z87.891 Personal history of nicotine dependence; Z88.5 Allergy status to narcotic agent; Z88.8 Allergy status to other drugs, medicaments and biological substances; Z79.899 Other long term (current) drug therapy; Z79.4 Long term (current) use of insulin
CPT/HCPCS: 36415; 71046; 80053; 83605; 85025; 87040; 99285; A9270

== ENCOUNTER 2018-10-19 15:23 | Emergency (ER) | payer MEDICARE, MEDICAID ==
[2018-10-19 15:55] VITALS: BP 153/71
[2018-10-19] MEDS ORDERED: methylPREDNISolone Sodium Succinate 125 MG/2 ML SDV IVPUSH ONE (18:19)
[2018-10-19] MEDS ORDERED: Albuterol/Ipratropium 3.0-0.5 MG/3 ML Neb Soln NEB ONE (18:19)
[2018-10-19] MEDS ORDERED: Sodium Chloride 0.9% 10 ML Syringe FLUSH PRN (18:19)
[2018-10-19] MEDS ORDERED: Budesonide 0.5 MG/2 ML Neb Susp NEB ONE (18:20)
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
[2018-10-19 18:56] LABS: ANION GAP 13.4; CHLORIDE,CL 98 mmol/L (101-111); SODIUM,NA 129 mmol/L (135-145)
[2018-10-19] MEDS ORDERED: Insulin Regular, Human 100 Units/ML 3 ML Vial SUBCUT ONE (19:54)
[2018-10-19] MEDS ORDERED: Insulin Regular, Human 100 Units/ML 3 ML Vial IV ONE (19:55)
[2018-10-19] MEDS ORDERED: Azithromycin 250 MG Tab PO ONE (19:56)
== END 2018-10-19 20:30 | disposition home or self-care (01) ==
LOC: DL.ED 15:23
DX: J18.1 Lobar pneumonia, unspecified organism (principal); J84.10 Pulmonary fibrosis, unspecified; I10 Essential (primary) hypertension; F17.210 Nicotine dependence, cigarettes, uncomplicated; E78.00 Pure hypercholesterolemia, unspecified; K21.9 Gastro-esophageal reflux disease without esophagitis; E11.40 Type 2 diabetes mellitus with diabetic neuropathy, unspecified; F41.9 Anxiety disorder, unspecified; Z86.73 Personal history of transient ischemic attack (TIA), and cerebral infarction without residual deficits; Z79.4 Long term (current) use of insulin; Z79.899 Other long term (current) drug therapy; Z88.8 Allergy status to other drugs, medicaments and biological substances; Z88.6 Allergy status to analgesic agent
CPT/HCPCS: 36415; 71046; 80053; 81001; 82962; 83605; 84484; 85025; 86140; 87804; 93005; 96374; 96375; 99284-25; A9270-GY; J1815-GY; J2930; J7620-GY

== ENCOUNTER 2018-10-28 16:04 | Emergency (ER) | payer MEDICARE, MEDICAID ==
[2018-10-28 16:16] VITALS: BP 125/61
[2018-10-28] MEDS ORDERED: methylPREDNISolone Sodium Succinate 125 MG/2 ML SDV IM ONE (16:50)
[2018-10-28 17:58] LABS: ANION GAP 13.8; CHLORIDE,CL 101 mmol/L (101-111); SODIUM,NA 133 mmol/L (135-145)
[2018-10-28] MEDS ORDERED: Codeine/guaiFENesin 100-10 MG/5 ML Syrup 5 ML Cup PO ONE (18:13)
[2018-10-28] MEDS ORDERED: Insulin Regular, Human 100 Units/ML 3 ML Vial IV ONE (18:14)
[2018-10-28] MEDS ORDERED: Insulin Regular, Human 100 Units/ML 3 ML Vial SUBCUT ONE (18:21)
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
== END 2018-10-28 19:05 | disposition home or self-care (01) ==
LOC: DL.ED 16:04
DX: J18.1 Lobar pneumonia, unspecified organism (principal); M54.42 Lumbago with sciatica, left side; E11.65 Type 2 diabetes mellitus with hyperglycemia; I10 Essential (primary) hypertension; E78.00 Pure hypercholesterolemia, unspecified; K21.9 Gastro-esophageal reflux disease without esophagitis; Z79.4 Long term (current) use of insulin; Z79.899 Other long term (current) drug therapy; Z88.8 Allergy status to other drugs, medicaments and biological substances; Z88.6 Allergy status to analgesic agent
CPT/HCPCS: 36415; 71046; 80053; 82962; 83880; 85025; 96374; 96375; 99283; A9270; J1815; J2930

== ENCOUNTER 2018-11-21 19:23 | Emergency (ER) | payer MEDICARE, MEDICAID ==
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
[2018-11-21] MEDS ORDERED: methylPREDNISolone Sodium Succinate 125 MG/2 ML SDV IM ONE (19:34)
[2018-11-21 19:45] VITALS: BP 145/63
== END 2018-11-21 20:10 | disposition home or self-care (01) ==
LOC: DL.ED 19:23
DX: M54.42 Lumbago with sciatica, left side (principal); M54.41 Lumbago with sciatica, right side; I10 Essential (primary) hypertension; E78.00 Pure hypercholesterolemia, unspecified; K21.9 Gastro-esophageal reflux disease without esophagitis; E11.40 Type 2 diabetes mellitus with diabetic neuropathy, unspecified; F41.9 Anxiety disorder, unspecified; Z79.4 Long term (current) use of insulin; Z79.899 Other long term (current) drug therapy; Z88.8 Allergy status to other drugs, medicaments and biological substances
CPT/HCPCS: 96372; 99282; J2930

== ENCOUNTER 2019-04-27 19:32 | Emergency (ER) | payer MEDICARE, MEDICAID, OTHER ==
[2019-04-27 19:44] VITALS: BP 96/55; PULSE 102
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
[2019-04-27 20:37] LABS: ANION GAP 15.2; CHLORIDE,CL 101 mmol/L (101-111); SODIUM,NA 137 mmol/L (135-145)
[2019-04-27 20:40] LABS: ACETAMINOPHEN < 10 ug/mL
== END 2019-04-27 23:42 | disposition home or self-care (01) ==
LOC: DL.ED 19:32
DX: R40.0 Somnolence (principal); T78.8XXA Other adverse effects, not elsewhere classified, initial encounter; I10 Essential (primary) hypertension; F41.0 Panic disorder [episodic paroxysmal anxiety]; K21.9 Gastro-esophageal reflux disease without esophagitis; F32.9 Major depressive disorder, single episode, unspecified; Z88.8 Allergy status to other drugs, medicaments and biological substances; Z79.4 Long term (current) use of insulin; Z79.899 Other long term (current) drug therapy; Z86.73 Personal history of transient ischemic attack (TIA), and cerebral infarction without residual deficits; Z90.49 Acquired absence of other specified parts of digestive tract; Z98.890 Other specified postprocedural states
CPT/HCPCS: 36415; 70450; 71045; 80053; 80305; 81001; 83605; 84484; 85025; 99284; G0480

== ENCOUNTER 2019-05-08 20:27 | Emergency (ER) | payer MEDICARE, MEDICAID, OTHER ==
[2019-05-08 20:21] VITALS: PULSE 146
[2019-05-08] MEDS ORDERED: Sodium Chloride 0.9% 1,000 ML IV ONE (20:31)
[2019-05-08 20:47] LABS: ANION GAP 20.7
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
[2019-05-08] MEDS ORDERED: cefTRIAXone 1 GM in Sodium Chloride 0.9% 50 ML IV ONE (21:27)
[2019-05-08] MEDS ORDERED: Azithromycin 500 MG in Sodium Chloride 0.9% 250 ML IV ONE (21:44)
== END 2019-05-08 22:35 ==
LOC: DL.ED 20:27
DX: A41.9 Sepsis, unspecified organism (principal); J18.9 Pneumonia, unspecified organism; I10 Essential (primary) hypertension; E11.40 Type 2 diabetes mellitus with diabetic neuropathy, unspecified; K21.9 Gastro-esophageal reflux disease without esophagitis; F41.0 Panic disorder [episodic paroxysmal anxiety]; F17.210 Nicotine dependence, cigarettes, uncomplicated; Z90.49 Acquired absence of other specified parts of digestive tract; Z88.8 Allergy status to other drugs, medicaments and biological substances; Z79.4 Long term (current) use of insulin; Z79.899 Other long term (current) drug therapy
CPT/HCPCS: 36415; 71045; 80053; 82962; 83605; 83880; 84484; 85025; 87040; 87077; 87186; 93005; 96361; 96365; 99285-25; J0696; J7030; J7050